=== PATIENT | male | born 1945 | race Caucasian/White ===

== ENCOUNTER → 2023-10-21 09:39 | Outpatient (REF) | payer OTHER, SELFPAY | LOC: RAD 09:39 | PROVIDERS: ATTENDING PHYSICIAN Nurse Practitioner Family; FAMILY PHYSICIAN Family Medicine | DX: M25.551 Pain in right hip (principal) | CPT/HCPCS: 73502 ==

== ENCOUNTER → 2023-11-04 09:22 | Outpatient (REF) | payer OTHER, SELFPAY | LOC: RAD 09:22 | PROVIDERS: ATTENDING PHYSICIAN Nurse Practitioner Family | DX: R19.09 Other intra-abdominal and pelvic swelling, mass and lump (principal) | CPT/HCPCS: 76882 ==

== ENCOUNTER → 2024-03-17 19:02 | Outpatient (REF) | payer OTHER, SELFPAY | LOC: MRI 3T 19:02 | PROVIDERS: ATTENDING PHYSICIAN Specialist; FAMILY PHYSICIAN Family Medicine | DX: G31.84 Mild cognitive impairment of uncertain or unknown etiology (principal) | CPT/HCPCS: 70551 ==

== ENCOUNTER → 2024-05-01 10:52 | Outpatient (REF) | payer OTHER, SELFPAY | LOC: PAVMRI 10:52 | PROVIDERS: ATTENDING PHYSICIAN Physician Assistant; FAMILY PHYSICIAN Family Medicine | DX: M54.16 Radiculopathy, lumbar region (principal) | CPT/HCPCS: 72148 ==

== ENCOUNTER 2024-06-03 00:56 | Emergency (ER) | payer OTHER, SELFPAY ==
[2024-06-03 00:59] VITALS: BP 168/89
--- NOTE | 2024-06-03 01:30 | ED.GENMED ---
History of Present Illness
General
Chief Complaint: Back Pain
Source: patient and spouse
Time Seen by Provider: 06/03/24 01:15
History of Present Illness
History of Present Illness:
78-year-old male presents with acute on chronic low back pain. Has had a history of sciatica. Was seen by orthopedic surgery and had an epidural. He was pain-free for several weeks. Today he was back at the machine [employer]. He was lifting some
bags and he developed low back pain similar to previous. He states that it shoots down his right leg. Denies loss of bowel or bladder function. Reports no urinary retention or constipation. Denies numbness or tingling. States he took her
oxycodone at home which brought his pain down to 8 out of 10. 911 was called and upon arrival he was given Toradol which eliminated his pain. He is currently 0 out of 10 and pain-free.
Review of Systems
Review of Systems
Allergies reviewed?: Yes
All Other Systems: ROS reviewed and negative except as documented in HPI and ROS
Constitutional: Reports no symptoms
EENT: Reports no symptoms
Respiratory: Reports no symptoms
Cardiac: Reports no symptoms
ABD/GI: Reports no symptoms
: Reports no symptoms
Musculoskeletal: Reports muscle stiffness and back pain
Skin: Reports no symptoms
Neurological: Reports no symptoms
Endocrine: Reports no symptoms
Hematologic/Lymphatic: Reports no symptoms
Psychiatric: Reports no symptoms
Phy Exam
General Physical Exam
General Presentation: well appearing and no apparent distress
General Skin: warm
General Habitus: normal
General Mental: alert
Cardiovascular Exam
Cardiovascular Exam: regular rate/rhythm
Neurological Exam
Neurological Exam: alert and oriented x3
Musculoskeletal Exam
Musculoskeletal Exam: full ROM, neuro vasc intact and other (Positive straight leg raising test with dorsiflexion at 20 degrees on the right. Negative on the left)
Skin Exam
Skin Exam: normal color and warm/dry
Course
Vital Signs
Initial and Last Documented VS:
Initial Vital Signs
Temp Pulse Resp BP Pulse Ox
98.5 F 70 18 168/89 99
06/03/24 00:59 06/03/24 00:59 06/03/24 00:59 06/03/24 00:59 06/03/24 00:59
Last Documented Vital Signs
Temp Pulse Resp BP Pulse Ox
98.5 F 70 18 168 99
06/03/24 00:59 06/03/24 00:59 06/03/24 00:59 06/03/24 00:59 06/03/24 00:59
*Critical Care Note
Total Time (30-74mins, 75-104mins- exclusive of procedures): Not Applicable
ED Attending Note
-
Portions of this chart may have been created with voice recognition software.� Occasional wrong word or��sound alike� substitutions may have occurred due to the inherent limitations of voice recognition software.
Discharge Plan
Departure
Patient Disposition: Home (Routine Discharge)
Date of Disposition: 06/03/24
Time of Disposition: 01:34
Patient with high blood pressure during this ER visit?: Yes
Condition: Good
Discharge Problem:
Low back pain, Sciatica
Instructions: Low Back Pain (DC), Sciatica (DC), BLOOD PRESSURE
Prescriptions:
New
diclofenac sodium 75 mg tablet,delayed release (DR/EC)
75 mg PO BID Qty: 10 0RF
No Action
multivitamin Tablet
1 tab PO DAILY
latanoprost 0.005 % Drops
1 drp RIGHT EYE DAILY
latanoprost 0.005 % Drops
1 drp LEFT EYE WEEKLY
omeprazole 20 mg Capsule,Delayed Release(Dr/Ec)
20 mg PO DAILY
aspirin 81 mg Tablet,Chewable
81 mg PO QPM
rosuvastatin 10 mg Tablet
10 mg PO QPM
mupirocin 2 % ointment
1 applic topical BID Qty: 1 0RF
Patient Comments:
Patient states that he applied it this am 09/30/22
dexamethasone 4 mg tablet
4 mg PO BID Qty: 6 0RF
Patient Comments:
for post op
Rx Instructions:
take with food
post-op use only
oxycodone 5 mg tablet
5 - 10 mg PO Q6HPRN PRN (Reason: 1 tab moderate-2 tabs severe pain) Qty: 30 0RF
Patient Comments:
for post op
Rx Instructions:
Dx surgery
ongoing therapy
Post-op use
aspirin 325 mg tablet
325 mg PO DAILY Qty: 1 0RF
Rx Instructions:
Take with food
docusate sodium [Colace] 100 mg capsule
100 mg PO BID Qty: 1 0RF
sennosides [Senokot] 8.6 mg tablet
17.2 mg PO BID Qty: 2 0RF
acetaminophen [Tylenol] 325 mg capsule
650 mg PO QID Qty: 2 0RF
Referrals:
Darion Santillan MD [Family Provider] -
Activity Restrictions/Additional Instructions:
It was a pleasure meeting you and taking part in your care. We hope for your continued healing and wellness.
Please read discharge instructions in their entirety. However, they are for general education and may not describe your exact diagnosis at discharge. Information on your ER visit and medical conditions were discussed with you along with appropriate
follow up information...
If indicated, please take your medications as instructed and indicated on discharge paperwork.
Please schedule a follow up appointment as directed. Call to schedule an appointment
Please return to the emergency department with ANY change in, persisting, or worsening of symptoms. If any of your symptoms do not improve, or persist, or become more severe within 6-12 hours, please return to the emergency department for further
care.
Please return to the emergency department if you develop a headache, neck pain/stiffness, fever greater than 100.4F, chest pain, shortness of breath, persistent nausea, vomiting, slurred speech, difficulty walking, numbness/tingling, weakness, signs
of infection or any other symptoms that are worrisome to you.
If you have any questions or concerns please do not hesitate to call the Hospital at or E-mail me directly at [email or web address]
Interventions
Interventions:
*Risk Screen - Suicide Last Done: 06/03/24 00:59
*General Assessment Last Done: 06/03/24 00:59
*Neglect/Abuse Screening Last Done: 06/03/24 00:59
*ED COVID-19 Vaccine History Last Done: 06/03/24 00:59
*Nursing Disposition Last Done: 06/03/24 02:07
ED-Musculoskeletal Assessment Last Done: 06/03/24 01:24
Discharge Date and Time
Discharge Date/Time: 06/03/24 02:11
Print Language: SPANISH
== END 2024-06-03 02:11 | disposition home or self-care (01) ==
LOC: EMR 00:56
PROVIDERS: EMERGENCY PHYSICIAN Student in an Organized Health Care Education/Training Program; FAMILY PHYSICIAN Family Medicine
DX: M54.40 Lumbago with sciatica, unspecified side (principal)
CPT/HCPCS: 99282

== ENCOUNTER 2025-03-01 02:20 | Emergency (ER) | payer OTHER, SELFPAY ==
[2025-03-01 02:26] VITALS: BMI 26.8
[2025-03-01 03:00] VITALS: BP 195/90
[2025-03-01 03:04] VITALS: BP 181/88
--- NOTE | 2025-03-01 03:04 | DOWNTIME ---
There was a [employer] Client Application [employer] Intern Downtime on 03/01/2025 from 0100 to 03/01/2025 at 0255. Downtime documentation of patient's care, including medication administrations, has been reconciled in the electronic record per guidelines. Refer to the
patient's paper chart under the miscellaneous tab to see printed paper medication records and downtime forms.
[2025-03-01 03:18] LABS: Hematocrit 37.0 % (39.0-52.0); Hemoglobin 12.0 g/dL (13.0-18.0); Mean Corp Hgb Conc. 32.4 g/dL (33.0-37.0); Mean Corpuscular Volume 102.5 fL (80.0-94.0); Nucleated Red Blood Cells % 0 % (-); Platelet Count 232 10^3/uL (130-400); Red Cell Dist. Width 12.3 % (11.5-14.5)
[2025-03-01 03:20] LABS: ALT (SGPT) 16 U/L (0-50); AST (SGOT) 23 U/L (17-59); Albumin 4.3 g/dl (3.5-5.0); Alkaline Phosphatase 78 U/L (38-126); Blood Urea Nitrogen 17 mg/dl (9-20); Calcium 9.6 mg/dl (8.4-10.2); Carbon Dioxide 28 mmol/L (22-30); Chloride 104 mmol/L (98-107); Glucose 120 mg/dl (70-99); Potassium 4.6 mmol/L (3.5-5.1); Sodium 135 mmol/L (135-145); Total Protein 6.8 g/dl (6.3-8.2); eGFR 43.29
[2025-03-01 04:00] VITALS: BP 158/76
--- NOTE | 2025-03-01 04:34 | ED.GENMED ---
History of Present Illness
General
Chief Complaint: Breathing Problem
Source: patient
Exam Limitations: none
Time Seen by Provider: 03/01/25 04:32
Nursing documentation reviewed up to this point in time: agreed with
History of Present Illness
History of Present Illness:
Note:
CHIEF COMPLAINT(S)
Shortness of breath, fall with minor head impact.
HISTORY OF PRESENT ILLNESS
The patient, an 79-year-old individual with pmh of HLP, GERD, renal stones, HTN, who was brought to the ER via and EMS with concerns of shortness of breath and a fall. He reports that was brought to the emergency department following a fall
that occurred on their way to the bathroom during the night. He tripped on the threshold and fell into the shower, hitting their head. The patient reported that while they did hit their head, the impact was minor, and they did not experience any
neck pain, dizziness, or headache following the fall. He denies injuring his chest or ribs. He denies chest pain. Shortly after the incident, the patient was starting to fall asleep and woke up with experienced significant shortness of breath,
prompting a call for emergency services. The shortness of breath lasted a few minutes until EMS arrived and administered oxygen, which resolved the symptoms. The patient denied prior episodes of shortness of breath. There are no current symptoms,
including chest pain or abdominal pain. The patient also felt like vomiting earlier due to burping, but did not vomit and this symptom has subsided. Of note, patient has had runny nose and cough the past few days and he believes that post nasal drip
and congestion may have contributed to the episode. He denies sick contacts, fevers or chills, hemoptysis.
PAST MEDICAL AND SURGICAL HISTORY
The patient has a history of elevated blood pressure but does not consistently take antihypertensive medication. They were supposed to be on Aricept, starting with 5 mg in January and increasing to 10 mg in February, but adherence is uncertain.
EXTERNAL RECORDS REVIEWED
The patient mentioned that their granddaughter often helps with managing medications.
CHRONIC MEDICAL CONDITIONS SIGNIFICANTLY AFFECTING CARE
Hypertension.
SOCIAL DETERMINANTS AFFECTING HEALTH
The patient earlier mentioned inconsistency in taking medications.
REVIEW OF SYSTEMS
- Respiratory: Significant shortness of breath post-fall, resolved with oxygen administration.
- Neurological: No dizziness, headache, or neck pain post-fall.
- Gastrointestinal: [place] like vomiting due to burping, but did not vomit; symptom subsided.
PHYSICAL EXAM
General: Alert, no acute distress.
Skin: Warm, dry.
Head: Normocephalic, atraumatic.
Neck: Supple, trachea midline.
No midline spinal tenderness
Eye Ears, Nose, Mouth, and Throat: Oral mucosa moist.
Cardiovascular: Regular rate and rhythm, no murmurs, no tenderness to palpation of the external chest wall. Normal peripheral perfusion, No edema.
Respiratory: Respirations are non-labored. No wheezes, rales, or rhonchi.
Gastrointestinal: Abdomen nondistended. No tenderness to palpation.
Back: Normal range of motion, Normal alignment.
Musculoskeletal: Normal ROM, normal strength.
Neurological: CN II-XII intact. 5/5 strength in b/l upper and lower extremities. Alert and oriented to person, place, time, and situation, No focal neurological deficit observed.
Psychiatric: Cooperative, appropriate mood & affect.
PROBLEM LIST
Acute:
- Shortness of breath, possibly due to congestion.
- Minor head trauma from fall.
Chronic:
- Hypertension
PLAN
1. The plan includes obtaining a chest X-ray to rule out any potential pulmonary issues contributing to the shortness of breath.
2. A head CT scan is considered due to the fall and minor head impact, particularly given the patients elevated blood pressure.
3. Recommending possibly restarting blood pressure medication, potentially with amlodipine, while awaiting follow-up with the primary care physician.
4. The patient is advised to follow up with their primary care provider in 10 days as previously scheduled.
DIFFERENTIAL DIAGNOSIS
The Differential Diagnosis includes, in no particular order and is not limited to:
1. Hypertensive crisis
2. Congestive heart failure
3. Chronic obstructive pulmonary disease exacerbation
4. Acute respiratory infection
5. Transient ischemic attack
6. Pulmonary embolism
7. Pneumonia
8. Syncope due to orthostatic hypotension
9. Bronchospasm
10. Gastroesophageal reflux disease with aspiration
ECG
Sinus bradycardia with left anterior fascicular block rate 58
No signs of acute ischemia
LABS
No leukocytosis
CKD
Pro-bnp normal
Viral testing negative
CHART REVIEW
06/03/24 patient seen in ER for acute on chronic low back pain
MDM/DISPOSITION
The patient, an 79-year-old individual with pmh of HLP, GERD, renal stones, HTN, who was brought to the ER via and EMS with concerns of shortness of breath and a fall.
Episode of SOB lasted a few minutes and quickly resolved, currently asymptomatic.
On exam, he is well appearing, no acute distress, vitals stable.
No signs of trauma
CT head and neck unremarkable
Suspect episode likely related to viral syndrome/episode of congestion
CXR no evidence of pneumonia or pneumothorax
Discussed close follow up with primary
Case reviewed with Dr. Braswell who evaluated patient at bedside and agrees with plan and my CXR reading. Patient stable for discharge.
Review of Systems
Review of Systems
All Other Systems: ROS reviewed and negative except as documented in HPI and ROS
Phy Exam
Physical Exam
Physical Exam:
see hpi
Scores
Heart Failure Risk
Heart Failure Risk Score: Not Applicable
Course
Orders/Labs/Results
Orders:
Orders
03/01/25
Electrocardiogram (*1) Stat
Reason for Study: Chest Pain
03/01/25 02:47
Complete Blood Count/With Diff Urgent
Comprehensive Metabolic Panel Urgent
03/01/25 04:49
NT-proBNP Urgent
03/01/25 05:15
CT Cervical Spine W/o Iv Contr Urgent
Comment:
Reason For Exam: neck discomfort, head trauma
CT Head W/o Iv Contrast Urgent
Comment:
Reason For Exam: head trauma following fall
CR Chest - 2 Views Urgent
Comment:
Reason For Exam: shortness of breath, cough
03/01/25 05:22
Electrocardiogram (*1) Urgent
Reason for Study: Shortness of Breath
03/01/25 05:30
COVID-19 Antigen Urgent
Source: Nasal Swab
Influenza A+B Rapid Molecular Urgent
GILBERTO Source: Nasal Swab
Specimen Description:
Abnormal Lab Results
03/01/25
02:47
RBC 3.61 L 10^6/uL
(4.70-6.10)
Hgb 12.0 L g/dL
(13.0-18.0)
Hct 37.0 L %
(39.0-52.0)
MCV 102.5 H fL
(80.0-94.0)
MCH 33.2 H pg
(27.0-31.0)
MCHC 32.4 L g/dL
(33.0-37.0)
Abs Immat Gran (auto) 0.2 H 10^3/uL
(0-0.05)
Absolute Monos (auto) 1.4 H 10^3/uL
(0.1-0.6)
Immature Gran % 2.2 H %
(0-0.5)
Monocytes % 16.1 H %
(1.7-9.3)
Creatinine 1.6 H mg/dL
(0.7-1.3)
Glucose 120 H mg/dl
(70-99)
03/01/25 02:47
03/01/25 02:47
Vital Signs
Initial and Last Documented VS:
Initial Vital Signs
Pulse Resp Pulse Ox
63 18 100
03/01/25 02:27 03/01/25 02:27 03/01/25 02:27
Last Documented Vital Signs
Temp Pulse Resp BP Pulse Ox
98.1 F 71 18 166/94 97
03/01/25 03:17 03/01/25 08:15 03/01/25 08:15 03/01/25 07:00 03/01/25 08:15
*Pulse Oximetry
SaO2: 97
Oxygen Mode of Delivery: Room air
Patient hypoxic: no
*Critical Care Note
Total Time (30-74mins, 75-104mins- exclusive of procedures): Not Applicable
ED Attending Note
-
Portions of this chart may have been created with voice recognition software.� Occasional wrong word or��sound alike� substitutions may have occurred due to the inherent limitations of voice recognition software.
Discharge Plan
Departure
Patient Disposition: Home (Routine Discharge)
Date of Disposition: 03/01/25
Time of Disposition: 07:29
Patient with high blood pressure during this ER visit?: Yes
Discharge Problem:
Acute viral syndrome, Fall
Instructions: Shortness of Breath (Dyspnea) (DC), BLOOD PRESSURE, Fall Prevention for Older Adults
Prescriptions:
No Action
multivitamin Tablet
1 tab PO DAILY
latanoprost 0.005 % Drops
1 drp RIGHT EYE DAILY
latanoprost 0.005 % Drops
1 drp LEFT EYE WEEKLY
omeprazole 20 mg Capsule,Delayed Release(Dr/Ec)
20 mg PO DAILY
aspirin 81 mg Tablet,Chewable
81 mg PO QPM
rosuvastatin 10 mg Tablet
10 mg PO QPM
mupirocin 2 % ointment
1 applic topical BID Qty: 1 0RF
Patient Comments:
Patient states that he applied it this am 09/30/22
dexamethasone 4 mg tablet
4 mg PO BID Qty: 6 0RF
Patient Comments:
for post op
Rx Instructions:
take with food
post-op use only
oxycodone 5 mg tablet
5 - 10 mg PO Q6HPRN PRN (Reason: 1 tab moderate-2 tabs severe pain) Qty: 30 0RF
Patient Comments:
for post op
Rx Instructions:
Dx surgery
ongoing therapy
Post-op use
aspirin 325 mg tablet
325 mg PO DAILY Qty: 1 0RF
Rx Instructions:
Take with food
docusate sodium [Colace] 100 mg capsule
100 mg PO BID Qty: 1 0RF
sennosides [Senokot] 8.6 mg tablet
17.2 mg PO BID Qty: 2 0RF
acetaminophen [Tylenol] 325 mg capsule
650 mg PO QID Qty: 2 0RF
diclofenac sodium 75 mg tablet,delayed release (DR/EC)
75 mg PO BID Qty: 10 0RF
Referrals:
Darion Santillan MD [Family Provider, Family Practice]
Activity Restrictions/Additional Instructions:
Please keep a log of your blood pressures at home. You may need to restart your blood pressure medications. Please call the attached number to schedule appointment to see your PCP in follow-up
As discussed, your CAT scan of the head and cervical spine were normal. Shortness of breath that you are having may be related to viral syndrome. Your x-ray showed no evidence of pneumonia
PLEASE RETURN TO ER SHOULD YOU DEVELOP ANY ACUTE WORSENING OF YOUR SYMPTOMS, RETURN OF YOUR SHORTNESS OF BREATH, DIFFICULTY SWALLOWING, CHANGES TO YOUR SPEECH, LOSS OF CONSCIOUSNESS, CHEST PAIN, OR ANY OTHER SIGNS OR SYMPTOMS WORRISOME TO YOU.
Interventions
Interventions:
*Risk Screen - Suicide Last Done: 03/01/25 03:12
*General Assessment Last Done: 03/01/25 03:12
*Neglect/Abuse Screening Last Done: 03/01/25 03:12
*ED- Fall Risk Assessment Last Done: 03/01/25 03:12
*ED COVID-19 Vaccine History Last Done: 03/01/25 03:12
*ED Influenza Vaccine History Last Done: 03/01/25 03:12
*Nursing Disposition Last Done: 03/01/25 08:53
ED- Cardiac Assessment Last Done: 03/01/25 03:12
ED- Pulmonary Assessment Last Done: 03/01/25 03:12
Discharge Date and Time
Discharge Date/Time: 03/01/25 08:30
Print Language: AFGHAN
[2025-03-01 05:00] VITALS: BP 181/85
[2025-03-01 06:00] VITALS: BP 148/92
[2025-03-01 06:01] LABS: COVID-19 Antigen Negative (Negative)
[2025-03-01 07:00] VITALS: BP 166/94
== END 2025-03-01 08:30 | disposition home or self-care (01) ==
LOC: EMR 02:20
PROVIDERS: Physician Assistant; EMERGENCY PHYSICIAN Student in an Organized Health Care Education/Training Program; FAMILY PHYSICIAN Family Medicine
DX: B34.9 Viral infection, unspecified (principal); S09.90XA Unspecified injury of head, initial encounter; W18.09XA Striking against other object with subsequent fall, initial encounter; Y92.002 Bathroom of unspecified non-institutional (private) residence as the place of occurrence of the external cause; I10 Essential (primary) hypertension; E78.5 Hyperlipidemia, unspecified; Z11.52 Encounter for screening for COVID-19; Z79.899 Other long term (current) drug therapy
CPT/HCPCS: 99285; 70450; 71046; 72125; 80053; 83880; 85025; 87502; 87811; 93005

== ENCOUNTER → 2025-03-14 08:58 | Outpatient (REF) | payer OTHER, SELFPAY | LOC: RAD 08:58 | PROVIDERS: ATTENDING PHYSICIAN Family Medicine | DX: R93.89 Abnormal findings on diagnostic imaging of other specified body structures (principal) | CPT/HCPCS: 71270; Q9967 ==